=== PATIENT | male | born 1935 | race Caucasian/White ===

== ENCOUNTER 2022-01-10 05:10 | Emergency (ER) | payer MEDICARE, OTHER ==
[~2022-01-10] VITALS: Ht 175 cm; Wt 75.0 kg
[2022-01-10] MEDS ORDERED: LOSA50TA63 (05:43)
[2022-01-10] MEDS ORDERED: GABA-486 (05:43)
[2022-01-10] MEDS ORDERED: PRAM0.128 (05:43)
[2022-01-10] MEDS ORDERED: SIMV20TA26 (05:43)
--- NOTE | 2022-01-10 05:51 | ED Abdominal Pain ---
General Chief Complaint: Abdominal/GI Problems Stated Complaint: ABD BLOATING,SEVERE ABD PAIN Source of Information: Patient Exam Limitations: No Limitations (AINSLEY WINKLER MD) History of Present Illness Date Seen by Provider: Jan 10, 2022 Time Seen by Provider: 05:32 Initial Comments Patient is an 86-year-old male who presents to the emergency department today with a chief complaint of severe abdominal pain that started at about 10:00 last night. Patient states it kept him awake most of the night. He states it radiated up into his chest and throat. He was quite nauseous but never vomited. He states he took Gaviscon and Pepto-Bismol twice. He has never had a pain quite like it before. He has had a couple of prior abdominal surgeries including an appendectomy, esophageal surgery and prostate surgery. He states just prior to my entry into the room that his pain had completely disappeared. He has had no further nausea. He describes significant abdominal bloating with belching and passing gas. No specific chest pain. The pain did not radiate into his back or down into his groin or legs/buttocks. He did have a couple of drinks with dinner last evening. No history of pancreatitis. No problems with urination. Last bowel movement was yesterday, nonblack nonbloody. All other review of systems reviewed and negative except as stated. Timing/Duration: 12 Hours Severity/Quality: Severe, Aching Location: Generalized Abdomen Radiation: Chest Activities at Onset: None Associated Symptoms: Nausea/Vomiting (AINSLEY WINKLER MD) Allergies and Home Medications Allergies Coded Allergies: No Known Drug Allergies (Unverified , 01/10/22) Patient Home Medication List Home Medication List Reviewed: Yes (AINSLEY WINKLER MD) Gabapentin (Gabapentin) 100 Mg Capsule, (Reported) Entered as Reported by: SILVA MIKE on 01/10/22542 Last Action: New Order Losartan Potassium (Losartan Potassium) 50 Mg Tablet, (Reported) Entered as Reported by: SILVA MIKE on 01/10/22542 Last Action: New Order Pramipexole Di-HCl (Pramipexole Dihydrochloride) 0.125 Mg Tablet, (Reported) Entered as Reported by: SILVA MIKE on 01/10/22542 Last Action: New Order Simvastatin (Simvastatin) 20 Mg Tablet, (Reported) Entered as Reported by: SILVA MIKE on 01/10/22 0543 Last Action: New Order Review of Systems Review of Systems Constitutional: see HPI EENTM: No Symptoms Reported Respiratory: No Symptoms Reported Cardiovascular: No Symptoms Reported Gastrointestinal: Abdominal Pain, Nausea, Other (bloating/gas/heartburn) Genitourinary: No Symptoms Reported Musculoskeletal: no symptoms reported (AINSLEY WINKLER MD) All Other Systems Reviewed Negative Unless Noted: Yes (AINSLEY WINKLER MD) Past Gprevhs-Btnfxb-Gptlkm Hx Patient Social History Tobacco Use?: No Substance use?: No Alcohol Use?: Yes Pt feels they are or have been: No (AINSLEY WINKLER MD) Past Medical History Surgery/Hospitalization HX: APPY. PERF. ESOPHAGUS, BACK HTN, HIGH CHOLESTEROL, BACK PAIN (AINSLEY WINKLER MD) Physical Exam Vital Signs Vital Signs - First Documented 01/10/22 05:25 Temp 36.1 Pulse 72 Resp 16 B/P (MAP) 160/98 (118) Pulse Ox 98 O2 Delivery Room Air (SANDRO GUPTA MD) Vital Signs Capillary Refill : (AINSLEY WINKLER MD) Height/Weight/BMI Height: '" Weight: lbs. oz. kg; BMI Method: General Appearance: WD/WN, no apparent distress HEENT: PERRL/EOMI Respiratory: lungs clear, normal breath sounds, no respiratory distress, no accessory muscle use Cardiovascular: regular rate, rhythm (60's) Peripheral Pulses: 2+ Radial Pulses (R), 2+ Radial Pulses (L) Gastrointestinal: normal bowel sounds ((somewhat quiet)), non tender, soft, no pulsatile mass Extremities: normal range of motion, non-tender, normal inspection, no pedal edema, normal capillary refill Neurologic/Psychiatric: alert, normal mood/affect, oriented x 3 Skin: normal color, warm/dry (AINSLEY WINKLER MD) Progress/Results/Core Measures Results/Orders Lab Results Laboratory Tests Test 01/10/22 05:53 01/10/22 06:12 Range/Units White Blood Count 4.9 4.3-11.0 10^3/uL Red Blood Count 4.64 4.30-5.52 10^6/uL Hemoglobin 14.7 13.3-17.7 g/dL Hematocrit 42 40-54 % Mean Corpuscular Volume 91 80-99 fL Mean Corpuscular Hemoglobin 32 25-34 pg Mean Corpuscular Hemoglobin Concent 35 32-36 g/dL Red Cell Distribution Width 12.5 10.0-14.5 % Platelet Count 157 130-400 10^3/uL Mean Platelet Volume 9.9 9.0-12.2 fL Immature Granulocyte % (Auto) 0 % Neutrophils (%) (Auto) 45 42-75 % Lymphocytes (%) (Auto) 38 12-44 % Monocytes (%) (Auto) 11 0-12 % Eosinophils (%) (Auto) 5 0-10 % Basophils (%) (Auto) 1 0-10 % Neutrophils # (Auto) 2.2 1.8-7.8 10^3/uL Lymphocytes # (Auto) 1.9 1.0-4.0 10^3/uL Monocytes # (Auto) 0.6 0.0-1.0 10^3/uL Eosinophils # (Auto) 0.2 0.0-0.3 10^3/uL Basophils # (Auto) 0.0 0.0-0.1 10^3/uL Immature Granulocyte # (Auto) 0.0 0.0-0.1 10^3/uL Sodium Level 139 135-145 MMOL/L Potassium Level 4.0 3.6-5.0 MMOL/L Chloride Level 109 H 98-107 MMOL/L Carbon Dioxide Level 18 L 21-32 MMOL/L Anion Gap 12 5-14 MMOL/L Blood Urea Nitrogen 17 7-18 MG/DL Creatinine 0.91 0.60-1.30 MG/DL Estimat Glomerular Filtration Rate 83 BUN/Creatinine Ratio 19 Glucose Level 91 70-105 MG/DL Calcium Level 8.8 8.5-10.1 MG/DL Corrected Calcium 8.9 8.5-10.1 MG/DL Total Bilirubin 0.5 0.1-1.0 MG/DL Aspartate Amino Transf (AST/SGOT) 22 5-34 U/L Alanine Aminotransferase (ALT/SGPT) 22 0-55 U/L Alkaline Phosphatase 61 40-136 U/L Total Protein 6.5 6.4-8.2 GM/DL Albumin 3.9 3.2-4.5 GM/DL Lipase 65 8-78 U/L Urine Color YELLOW Urine Clarity CLEAR Urine pH 5.5 5-9 Urine Specific [place] 1.025 H 1.016-1.022 Urine Protein NEGATIVE NEGATIVE Urine Glucose (UA) NEGATIVE NEGATIVE Urine Ketones NEGATIVE NEGATIVE Urine Nitrite NEGATIVE NEGATIVE Urine Bilirubin NEGATIVE NEGATIVE Urine Urobilinogen 0.2 < = 1.0 MG/DL Urine Leukocyte Esterase NEGATIVE NEGATIVE Urine RBC (Auto) NEGATIVE NEGATIVE Urine RBC NONE /HPF Urine WBC NONE /HPF Urine Squamous Epithelial Cells 0-2 /HPF Urine Crystals NONE /LPF Urine Bacteria NEGATIVE /HPF Urine Casts NONE /LPF Urine Mucus NEGATIVE /LPF Urine Culture Indicated NO (SANDRO GUPTA MD) My Orders Orders - SANDRO GUPTA MD Ua Culture If Indicated (01/10/22 06:04) (SANDRO GUPTA MD) Vital Signs/I&O 01/10/22 01/10/22 05:25 07:25 Temp 36.1 Pulse 72 61 Resp 16 16 B/P (MAP) 160/98 (118) 150/94 Pulse Ox 98 97 O2 Delivery Room Air Room Air (SANDRO GUPTA MD) Progress Progress Note : Time: 05:49 Progress Note Patient is completely comfortable. Was concerned about the intensity of the pain - has never been to an Emergency Department before. He states the discomfort/pain is completely gone. exam is benign. VSS. Will go ahead and check some basic labs. Low suspicion for AAA, intestinal ischemia, obstruction. Perhaps he passed a gallstone? Will monitor and re-examine after labs. Will pass care to Dr Gupta at shift change. (AINSLEY WINKLER MD) Progress Note : Time: 07:12 Progress Note Lab work-up was unremarkable. Patient was reexamined and found to have a mildly distended abdomen that was soft and nontender with no masses. He is feeling well except for frequent belching and passing of flatus. He denies any pain or nausea. He was offered KUB and upright x-ray but declines at this time because he is feeling near baseline. He was given a glass of water to trial. He tolerated water well without any worsening of symptoms. He does state he has problems with gastric upset with eating for which he takes Gaviscon. He has to be careful with what types of foods he eats. I suggested trying Pepcid as well. Return precautions given. See discharge instructions for further discussion. (SANDRO GUPTA MD) Departure Impression Primary Impression: Abdominal pain Qualified Codes: R10.84 - Generalized abdominal pain Additional Impression: Abdominal bloating Disposition: 01 HOME, SELF-CARE Condition: Improved Departure-Patient Inst. Decision time for Depature: 07:12 (SANDRO GUPTA MD) Patient Instructions: Abdominal Pain, Adult ED Add. Discharge Instructions: Observe a noncarbonated clear liquid diet for the rest of today. You may trial a small quantity of bland food this evening. Then gradually advance your diet with small quantities of bland food as tolerated. If you are having difficulty with acid reflux or gastritis, you may add Pepcid (famotidine) 20 mg twice daily. Schedule follow-up appointment with your doctor in the near future and discuss further antacid therapy. Return to the emergency room if you have a return of abdominal pain or other significant symptoms. Call with questions or concerns. All discharge instructions reviewed with patient and/or family. Voiced understanding. AINSLEY WINKLER MD Jan 10, 2022 05:51 SANDRO GUPTA MD Jan 10, 2022 07:14
[2022-01-10 06:07] LABS: BASOPHILS % (AUTO) 1 % (0-10); EOSINOPHILS # (AUTO) 0.2 10^3/uL (0.0-0.3); EOSINOPHILS % (AUTO) 5 % (0-10); HEMATOCRIT 42 % (40-54); HEMOGLOBIN 14.7 g/dL (13.3-17.7); LYMPHOCYTES # (AUTO) 1.9 10^3/uL (1.0-4.0); LYMPHOCYTES % (AUTO) 38 % (12-44); MEAN CORPUSCULAR HEMOGLOBIN 32 pg (25-34); MEAN CORPUSCULAR HGB CONC 35 g/dL (32-36); MEAN CORPUSCULAR VOLUME 91 fL (80-99); MEAN PLATELET VOLUME 9.9 fL (9.0-12.2); MONOCYTES # (AUTO) 0.6 10^3/uL (0.0-1.0); MONOCYTES % (AUTO) 11 % (0-12); NEUTROPHILS # (AUTO) 2.2 10^3/uL (1.8-7.8); NEUTROPHILS % (AUTO) 45 % (42-75); PLATELET COUNT 157 10^3/uL (130-400); WHITE BLOOD COUNT 4.9 10^3/uL (4.3-11.0)
[2022-01-10 06:12] LABS: ALBUMIN 3.9 GM/DL (3.2-4.5)
[2022-01-10 06:14] LABS: CALCIUM 8.8 MG/DL (8.5-10.1)
[2022-01-10 06:15] LABS: TOTAL PROTEIN 6.5 GM/DL (6.4-8.2)
[2022-01-10 06:16] LABS: BILIRUBIN,URINE NEGATIVE (NEGATIVE); CLARITY,URINE CLEAR; COLOR,URINE YELLOW; GLUCOSE, URINE (UA) NEGATIVE (NEGATIVE); KETONES,URINE NEGATIVE (NEGATIVE); LEUKOCYTE ESTERASE ,URINE NEGATIVE (NEGATIVE); NITRITE,URINE NEGATIVE (NEGATIVE); PH,URINE 5.5 (5-9); PROTEIN,URINE NEGATIVE (NEGATIVE)
[2022-01-10 06:17] LABS: BILIRUBIN,TOTAL 0.5 MG/DL (0.1-1.0)
[2022-01-10 06:19] LABS: CREATININE SERUM 0.91 MG/DL (0.60-1.30)
[2022-01-10 06:25] LABS: BACTERIA,URINE NEGATIVE /HPF; SQUAMOUS EPITHELIAL CELL,UR 0-2 /HPF
[2022-01-10 07:25] VITALS: BP 150/94
== END 2022-01-10 07:28 | disposition home or self-care (01) ==
LOC: ER 05:15
DX: R10.84 Generalized abdominal pain (principal); R14.0 Abdominal distension (gaseous)
CPT/HCPCS: 36415; 80053; 81000; 83690; 85025; 99282